=== PATIENT | female | born 1995 | race Hispanic/Latino ===

== ENCOUNTER 2020-11-01 23:05 | Emergency (ER) | payer SELFPAY ==
[~2020-11-01] VITALS: Ht 160 cm; Wt 59.6 kg
[~2020-11-01 23:05] MED LIST: BIRTH CONTROL PILLS; MACROBID100 MG PO; NAPROSYN500 MG PO; PYRIDIUM200 MG PO; [UNRECOGNIZED DRUG - OTHER] IV
[2020-11-02] MEDS ORDERED: KEFLEX500 MG PO (00:36)
[2020-11-02 01:24] VITALS: BP 130/75
== END 2020-11-02 01:25 | disposition home or self-care (01) | DRG 603 ==
LOC: ED 23:05
DX: L03.011 Cellulitis of right finger (principal)